=== PATIENT | female | born 1965 | race Caucasian/White ===

== ENCOUNTER → 2017-04-26 | Outpatient (CLI) | payer OTHER ==
[~2017-04-26] MED LIST: "\\\"PREP SPRAY\\\"-TIN4 OZ"; NORCO 5-325 MG1 TAB PO
== END | disposition disaster alternative care site (69) ==
LOC: GRAD 10:38
DX: C50.212 Malignant neoplasm of upper-inner quadrant of left female breast (principal); K76.0 Fatty (change of) liver, not elsewhere classified; N26.1 Atrophy of kidney (terminal); Z98.890 Other specified postprocedural states
CPT/HCPCS: Q9967